=== PATIENT | female | born 1980 | race African-American/Black ===

== ENCOUNTER 2018-02-06 18:10 | Emergency (ER) | payer BC, OTHER ==
[~2018-02-06] VITALS: Ht 170.2 cm; Wt 85.3 kg
[~2018-02-06 18:10] MED LIST: APAP500 PO; COLACE 100 MG100 MG PO; DERMOPLAST SPRA56 ML; FERRO-TIME325 MG PO; HYDROCORTISONE30 G9; IBUPROFEN 800800 M1 PO; LANOLIN56 GM; NOHOMEMEDICATIONS; PRENATAL PO; TUCKS MEDICATE1 EAC1
[2018-02-06] MEDS ORDERED: TRAMADOL 50 MG50 MG PO (19:42)
[2018-02-06 20:08] VITALS: BP 143/82
== END 2018-02-06 20:11 | disposition home or self-care (01) ==
LOC: ER 18:10
DX: S63.592A Other specified sprain of left wrist, initial encounter (principal); S20.212A Contusion of left front wall of thorax, initial encounter; S70.02XA Contusion of left hip, initial encounter; W00.0XXA Fall on same level due to ice and snow, initial encounter; Y92.89 Other specified places as the place of occurrence of the external cause; Y93.89 Activity, other specified; Y99.8 Other external cause status